=== PATIENT | female | born 1975 | race Caucasian/White ===

== ENCOUNTER 2025-05-23 14:06 | Outpatient (CLI) | payer OTHER, SELFPAY ==
--- NOTE | 2025-05-23 14:00 | MM_ITS ---
WS: [id number] BILATERAL 3D TOMOSYNTHESIS DIGITAL SCREENING MAMMOGRAPHY WITH CAD CLINICAL INFORMATION: SCREENING HISTORY: Screening mammogram. No current complaints. COMPARISON: 2018 TECHNIQUE: Bilateral CC and MLO views. FINDINGS: The breasts are composed of heterogeneous fibroglandular density tissue, which can limit the detection of small underlying mass lesions. Parenchymal pattern has significantly changed since 2018 with new large areas of nodularity throughout both breasts. Numerous partially obscured large ovoid nodules the largest in the LEFT breast measuring up to 6 x 4 cm. These most likely represent cysts considering history and patient age however indeterminate especially without recent comparisons. Recommend bilateral breast ultrasound. MM/MM [facility] tomosynthesis [id number] IMPRESSION: DENSITY: The breasts are heterogeneously dense, which may obscure small masses. BI-RADS: 0 - Incomplete: Need additional imaging evaluation FOLLOW UP: Need Additional Imaging Recommend bilateral breast ultrasound
== END 2025-05-23 14:07 | disposition home or self-care (01) ==
PROVIDERS: PCP Nurse Practitioner; Visit Provider Nurse Practitioner
DX: Z12.31 Encounter for screening mammogram for malignant neoplasm of breast (principal); R92.333 Mammographic heterogeneous density, bilateral breasts; R92.323 Mammographic fibroglandular density, bilateral breasts; N63.20 Unspecified lump in the left breast, unspecified quadrant
CPT/HCPCS: 77063; 77067

== ENCOUNTER 2025-06-14 13:59 | Outpatient (CLI) | payer OTHER, SELFPAY ==
--- NOTE | 2025-06-14 14:06 | US_ITS ---
WS: [id number] ULTRASOUND BREAST BILATERAL TECHNIQUE: Ultrasound bilateral breast focused area of concern. CLINICAL INFORMATION: ABNORMAL MAMMO FINDINGS: RIGHT BREAST: Ultrasound RIGHT breast demonstrates several simple cysts the largest retroareolar measuring 2.6 x 1.4 cm Indeterminate hypoechoic lesion at the 11 o'clock position 1 cm from the nipple measuring 1.0 x 0.9 x 0.7 cm. Small amount of through-transmission. This probably represents a complex cyst or less likely fibroadenoma. Recommend 6- month follow-up RIGHT breast ultrasound. LEFT BREAST: Ultrasound LEFT breast demonstrates multiple large cysts. The largest at the 12 o'clock position 1 cm from the nipple measures 5.1 x 4.9 x 1.5 cm with an additional large cyst at the 1 o'clock position 4 cm from the nipple measuring 4.7 x 4.2 x 1.4 cm. US/US breast BI complete [id number] IMPRESSION: BI-RADS 3 probably benign Recommend 6-month follow-up RIGHT breast ultrasound with attention to the hypoe choic nodule 11 o'clock position 1 cm from the nipple
== END 2025-06-14 14:00 | disposition home or self-care (01) ==
LOC: RAD 13:59
PROVIDERS: PCP Nurse Practitioner; Visit Provider Nurse Practitioner
DX: R92.8 Other abnormal and inconclusive findings on diagnostic imaging of breast (principal)
CPT/HCPCS: 76641